=== PATIENT | female | born 2000 | race African-American/Black ===

== ENCOUNTER 2020-03-27 17:53 | Emergency (ER) | payer OTHER ==
[2020-03-27 18:19] VITALS: BP 97/52; PULSE 76; TEMP 99; BMI 31.8
[2020-03-27 19:52] LABS: HCG,QUALITATIVE URINE Negative
[2020-03-27 19:56] LABS: EPI CELLS 4 /uL (0-25.1); HYALINE CASTS 2 /uL (0-3.1); URINE APPEARANCE CLOUDY; URINE BACTERIA >9,000 /uL (0-1359); URINE BILIRUBIN NEGATIVE (NEGATIVE); URINE COLOR YELLOW; URINE GLUCOSE (UA) NEGATIVE (NEGATIVE); URINE KETONE NEGATIVE (NEGATIVE); URINE LEUK ESTERASE 1+ (NEGATIVE); URINE NITRITE POSITIVE (NEGATIVE); URINE PROTEIN NEGATIVE (NEGATIVE); URINE RBC 6 /uL (0-23.9); URINE UROBILINOGEN 0.2 mg/dL (0.2-1.0); URINE WBC 143 /uL (0-25.8)
[2020-03-27] MEDS ORDERED: CEPHALEXIN MONOHYDRATE 500 MG CAPSULE (UD) PO ONE (20:16)
[2020-03-27] MEDS ORDERED: CEPHALEXIN MONOHYDRATE 500 MG CAPSULE (UD) ONE (20:18)
== END 2020-03-27 20:33 | disposition home or self-care (01) ==
LOC: JER 17:53
DX: N30.00 Acute cystitis without hematuria (principal)
CPT/HCPCS: 81003; 84703; 87086; 87186; 99283-25